=== PATIENT | female | born 1990 | race Caucasian/White ===

== ENCOUNTER 2016-07-19 14:48 | Emergency (ER) | payer OTHER ==
[~2016-07-19] VITALS: Ht 160 cm; Wt 70.5 kg
[~2016-07-19 14:48] MED LIST: HYDR-3111 PO; IBUP800 PO; ZITH250T PO
[2016-07-19 14:50] VITALS: BP 157/81; PULSE 88; RESP 17; TEMP 97.9; O2SAT 96
--- NOTE | 2016-07-19 14:54 | PD ---
Physical Exam Time Seen by Provider: 14:54 Narrative 25 y/o female here for evaluation of vaginal bleeding for 3 months, increased fatigue and "sleeping too much." Vital signs reviewed. Seen at triage desk. awaiting bed placement. Data Data Last Documented VS Vital Signs Date Time Temp Pulse Resp B/P Pulse Ox O2 Delivery O2 Flow Rate FiO2 07/19/16 14:50 97.9 88 17 157/81 96 MDM Medical Record Reviewed: Yes Supervised Visit with MARII: Adam James July 19, 2016 14:54
--- NOTE | 2016-07-19 15:35 | PD ---
HPI Chief Complaint: Medical Clearance Time Seen by Provider: 15:00 Travel History International Travel<30 days: No Contact w/Intl Traveler<30days: No Traveled to known affect area: No History of Present Illness HPI Patient is a 25-year-old female presenting to the emergency for evaluation of fatigue, abnormal periods. For the last 3 months she's had daily vaginal bleeding, the flow varies from day to day on her heaviest day she uses 4-5 pads other days only a panty liner. For the last 1-2 months she reports increased fatigue and sleeping more. She states that she slept for the last 2 days straight and it is becoming a problem caring for her 5-year-old daughter. Patient denies any fever, chills, shortness of breath, chest pain, abdominal pain, any vaginal discharge or odor. She does report a history of anxiety but is not taking any medications for this. PFSH Past Medical History Anxiety: Yes Depression: Yes Headaches: Yes (migranes) Sickle Cell Disease: Yes (trait) ?: Unknown Menopausal: No : 1 Para: 1 Ectopic : No Ovarian Cysts: No Dilation and Curettage (D&C): No Tubal Ligation: No Past Surgical History Section: Yes Social History Alcohol Use: No Tobacco Use: No Substance Use: No Allergies-Medications (Allergen,Severity, Reaction): Coded Allergies: No Known Allergies (Unverified , 07/19/16) Reported Meds & Prescriptions Reported Meds & Active Scripts Active Motrin 800 Mg Tab (Ibuprofen) 800 Mg Tab 800 Mg PO Q8H PRN Vicodin 5/300 (Hydrocodone-Acetaminophen) 5 Mg/300 Mg Tab 1 Tab PO Q4H PRN Zithromax Z-Rafael (Azithromycin) 250 Mg Tab 250 Mg PO DIRECTED 5 Days 500 MG (2 TABLETS) PO ON DAY 1, THEN 250 MG (1 TABLET) PO ON DAYS 2 TO 5. Review of Systems Except as stated in HPI: all other systems reviewed are Neg General / Constitutional: Positive: Other (fatigue, increased sleeping) Genitourinary: Positive: Metorrhagia Neurologic: No: Weakness, Dizziness Physical Exam Narrative GENERAL: Well developed, well-nourished, alert female. Resting comfortably in no acute distress. SKIN: Focused skin assessment warm/dry. HEAD: Atraumatic. Normocephalic. EYES: Pupils equal and round. No scleral icterus. No injection or drainage. ENT: No nasal bleeding or discharge. Mucous membranes pink and moist. NECK: Trachea midline. No JVD. CARDIOVASCULAR: Regular rate and rhythm. No murmur appreciated. RESPIRATORY: No accessory muscle use. Clear to auscultation. Breath sounds equal bilaterally. GASTROINTESTINAL: Abdomen soft, non-tender, nondistended. Hepatic and splenic margins not palpable. MUSCULOSKELETAL: No obvious deformities. No clubbing. No cyanosis. No edema. NEUROLOGICAL: Awake and alert. No obvious cranial nerve deficits. Motor grossly within normal limits. Normal speech. PSYCHIATRIC: Appropriate mood and affect; insight and judgment normal. Data Data Last Documented VS Vital Signs Date Time Temp Pulse Resp B/P Pulse Ox O2 Delivery O2 Flow Rate FiO2 07/19/16 14:50 97.9 88 17 157/81 96 Orders Complete Blood Count With Diff (07/19/16 15:14) Basic Metabolic Panel (Bmp) (07/19/16 15:14) Thyroid Stimulating Hormone (07/19/16 15:14) Free Thyroxine (T4) (07/19/16 15:14) Urinalysis - C+S If Indicated (07/19/16 15:14) Potassium Chloride (Kcl) (07/19/16 16:15) Labs Laboratory Tests Test 07/19/16 15:20 White Blood Count 7.8 TH/MM3 Red Blood Count 5.20 MIL/MM3 Hemoglobin 14.6 GM/DL Hematocrit 43.0 % Mean Corpuscular Volume 82.8 FL Mean Corpuscular Hemoglobin 28.1 PG Mean Corpuscular Hemoglobin 34.0 % Concent Red Cell Distribution Width 13.2 % Platelet Count 304 TH/MM3 Mean Platelet Volume 7.9 FL Neutrophils (%) (Auto) 66.3 % Lymphocytes (%) (Auto) 25.3 % Monocytes (%) (Auto) 6.5 % Eosinophils (%) (Auto) 1.1 % Basophils (%) (Auto) 0.8 % Neutrophils # (Auto) 5.2 TH/MM3 Lymphocytes # (Auto) 2.0 TH/MM3 Monocytes # (Auto) 0.5 TH/MM3 Eosinophils # (Auto) 0.1 TH/MM3 Basophils # (Auto) 0.1 TH/MM3 CBC Comment DIFF FINAL Differential Comment Urine Color YELLOW Urine Turbidity HAZY Urine pH 5.5 Urine Specific [place] 1.015 Urine Protein 30 mg/dL Urine Glucose (UA) NEG mg/dL Urine Ketones NEG mg/dL Urine Occult Blood MOD Urine Nitrite NEG Urine Bilirubin NEG Urine Urobilinogen LESS THAN 2.0 MG/DL Urine Leukocyte Esterase SMALL Urine RBC 4 /hpf Urine WBC 5 /hpf Urine Squamous Epithelial 11 /hpf Cells Urine Bacteria OCC /hpf Urine Mucus FEW /lpf Microscopic Urinalysis Comment CULT NOT INDICATED Sodium Level 140 MEQ/L Potassium Level 3.4 MEQ/L Chloride Level 103 MEQ/L Carbon Dioxide Level 26.1 MEQ/L Anion Gap 11 MEQ/L Blood Urea Nitrogen 15 MG/DL Creatinine 1.00 MG/DL Estimat Glomerular Filtration 68 ML/MIN Rate Random Glucose 144 MG/DL Calcium Level 9.7 MG/DL Free Thyroxine 0.82 NG/DL Thyroid Stimulating Hormone 1.390 uIU/ML 3rd Gen [facility] Medical Decision Making Medical Screen Exam Complete: Yes Emergency Medical Condition: Yes Interpretation(s) Vital Signs Date Time Temp Pulse Resp B/P Pulse Ox O2 Delivery O2 Flow Rate FiO2 07/19/16 14:50 97.9 88 17 157/81 96 Differential Diagnosis Menorrhagia versus dysfunctional uterine bleeding versus anemia versus thyroid disorder versus other Narrative Course Patient is a 25-year-old female presenting to the emergency department for evaluation of fatigue and dysfunctional uterine bleeding. Symptoms have been ongoing for 3 months, patient has not attempted to follow-up with any primary doctor or hebrew professor. At this time we will check blood counts, thyroid, at about panel. [id number] Urine is negative. Patient's vital signs are stable, she is resting comfortably. CBC is unremarkable, there is no signs of anemia. Chemistry with a potassium of 3.3, this was replaced orally. Urinalysis is not indicative of urinary tract infection. TSH and free T4 unremarkable. Patient is encouraged to follow -up with [facility] or [facility] for further evaluation of dysfunctional uterine bleeding. She was encouraged to return to emergency department for any new or worsening symptoms. Patient verbalized understanding of discharge instructions. Patient is stable for discharge. Diagnosis Primary Impression: Dysfunctional uterine bleeding Referrals: [facility] [place] Patient Instructions: Dysfunctional Uterine Bleeding (ED), General Instructions Additional Instructions: Follow up at the [facility] or with [facility] or with your hebrew professor Return to emergency department for any new or worsening symptoms Med/Other Pt SpecificInfo: No Change to Meds Disposition: 01 DISCHARGE HOME Condition: Stable Ciara Mallory July 19, 2016 15:34
[2016-07-19 15:44] LABS: AUTOMATED NEUTROPHIL # 5.2 TH/MM3 (1.8-7.7); BASOPHIL # 0.1 TH/MM3 (0-0.2); BASOPHIL % 0.8 % (0.0-2.0); EOSINOPHIL # 0.1 TH/MM3 (0-0.4); EOSINOPHIL % 1.1 % (0.0-4.0); HEMO FLAGS DIFF FINAL; LYMPH % 25.3 % (9.0-44.0); MEAN CELL VOLUME 82.8 FL (80.0-100.0); MEAN CORPUSCULAR HEMOGLOBIN 28.1 PG (27.0-34.0); MONO % 6.5 % (0.0-8.0); NEUT % 66.3 % (16.0-70.0); PLATELET COUNT 304 TH/MM3 (150-450); RED CELL DISTRIBUTION WIDTH 13.2 % (11.6-17.2); WHITE BLOOD COUNT 7.8 TH/MM3 (4.0-11.0)
[2016-07-19 15:49] LABS: BACTERIA, URINE OCC /hpf; BLOOD, URINE MOD (NEG); COMMENT (UR) CULT NOT INDICATED; CULTURE IF INDICATED CULT NOT INDICATED; GLUCOSE,URINE NEG (NEG); KETONE, URINE NEG (NEG); MUCUS URINE FEW /lpf (OCC); NITRITE,URINE NEG (NEG); PH, URINE 5.5 (5.0-8.5); SQUAMOUS EPITHELIAL CELL URINE 11 /hpf (0-5); URINE COLOR YELLOW (YELLW/STRAW)
[2016-07-19 16:04] LABS: BICARBONATE 26.1 MEQ/L (21.0-32.0); POTASSIUM 3.4 MEQ/L (3.5-5.1)
[2016-07-19 16:15] LABS: FREE T4 0.82 NG/DL (0.76-1.46)
[2016-07-19] MEDS ORDERED: POTASSIUM CHLORIDE 10 MEQ CONTROLLED RELEASE TAB PO ONE (16:15)
--- NOTE | 2016-07-19 16:18 | PD ---
Data Data Last Documented VS Vital Signs Date Time Temp Pulse Resp B/P Pulse Ox O2 Delivery O2 Flow Rate FiO2 07/19/16 14:50 97.9 88 17 157/81 96 Orders Complete Blood Count With Diff (07/19/16 15:14) Basic Metabolic Panel (Bmp) (07/19/16 15:14) Thyroid Stimulating Hormone (07/19/16 15:14) Free Thyroxine (T4) (07/19/16 15:14) Urinalysis - C+S If Indicated (07/19/16 15:14) Potassium Chloride (Kcl) (07/19/16 16:15) Labs Laboratory Tests Test 07/19/16 15:20 White Blood Count 7.8 TH/MM3 Red Blood Count 5.20 MIL/MM3 Hemoglobin 14.6 GM/DL Hematocrit 43.0 % Mean Corpuscular Volume 82.8 FL Mean Corpuscular Hemoglobin 28.1 PG Mean Corpuscular Hemoglobin 34.0 % Concent Red Cell Distribution Width 13.2 % Platelet Count 304 TH/MM3 Mean Platelet Volume 7.9 FL Neutrophils (%) (Auto) 66.3 % Lymphocytes (%) (Auto) 25.3 % Monocytes (%) (Auto) 6.5 % Eosinophils (%) (Auto) 1.1 % Basophils (%) (Auto) 0.8 % Neutrophils # (Auto) 5.2 TH/MM3 Lymphocytes # (Auto) 2.0 TH/MM3 Monocytes # (Auto) 0.5 TH/MM3 Eosinophils # (Auto) 0.1 TH/MM3 Basophils # (Auto) 0.1 TH/MM3 CBC Comment DIFF FINAL Differential Comment Urine Color YELLOW Urine Turbidity HAZY Urine pH 5.5 Urine Specific [place] 1.015 Urine Protein 30 mg/dL Urine Glucose (UA) NEG mg/dL Urine Ketones NEG mg/dL Urine Occult Blood MOD Urine Nitrite NEG Urine Bilirubin NEG Urine Urobilinogen LESS THAN 2.0 MG/DL Urine Leukocyte Esterase SMALL Urine RBC 4 /hpf Urine WBC 5 /hpf Urine Squamous Epithelial 11 /hpf Cells Urine Bacteria OCC /hpf Urine Mucus FEW /lpf Microscopic Urinalysis Comment CULT NOT INDICATED Sodium Level 140 MEQ/L Potassium Level 3.4 MEQ/L Chloride Level 103 MEQ/L Carbon Dioxide Level 26.1 MEQ/L Anion Gap 11 MEQ/L Blood Urea Nitrogen 15 MG/DL Creatinine 1.00 MG/DL Estimat Glomerular Filtration 68 ML/MIN Rate Random Glucose 144 MG/DL Calcium Level 9.7 MG/DL Free Thyroxine 0.82 NG/DL Thyroid Stimulating Hormone 1.390 uIU/ML 3rd Gen MDM Supervised Visit with MARII: Yes Narrative Course I, Dr. Souza, have reviewed the advance practice practioner's documentation and am in agreement, met with the patient face to face, made the diagnosis, and the medical decision making was done by me. *My assessment and Findings: 25-year-old female here with complaint of 3 months of heavy, irregular vaginal bleeding, intermittent fatigue. Benign abdominal examination. Differential includes anemia, dysmenorrhea, menorrhagia, electrolyte abnormality, thyroid abnormality. Laboratory workup negative, patient was reassured will be discharged home with outpatient [employer] follow-up. Livier Souza MD July 19, 2016 16:18
[2016-07-19 16:20] VITALS: BP 120/63; PULSE 75; RESP 16; O2SAT 100
== END 2016-07-19 16:32 | disposition home or self-care (01) ==
LOC: NEPD 14:48
DX: N93.8 Other specified abnormal uterine and vaginal bleeding (principal); R53.83 Other fatigue; D57.3 Sickle-cell trait
CPT/HCPCS: 80048; 81001; 84439; 84443; 85025; 99283